=== PATIENT | female | born 1995 | race Caucasian/White ===

== ENCOUNTER → 2017-08-21 | Outpatient (CLI) | payer OTHER ==
--- NOTE | 2017-08-21 13:25 | EKG REPORT ---
SEVERITY:- NORMAL ECG - SINUS RHYTHM : Confirmed by: Jeet Duncan MD 21-Aug-2017 13:24:18
== END ==
LOC: RT 12:31
PROVIDERS: ATTEND Pediatrics
DX: R55 Syncope and collapse (principal); R26.89 Other abnormalities of gait and mobility
CPT/HCPCS: 93005; 93010

== ENCOUNTER → 2017-09-19 | Outpatient (CLI) | payer OTHER ==
--- NOTE | 2017-09-20 08:32 | EEG PRO FEE REPORT ---
EEG INTERPRETATION PATIENT NAME: VICENTE JUNG ROOM#: ORDER#: [id number] DATE OF STUDY: 09/19/2017 : 1995 REFERRING MD: MICHELLE MOYA M.D. DIAGNOSIS: Syncope, POTS syndrome REPORT The background activity consists of 8-9 Hz low voltage alpha for the most part while awake there is frequent motion artifact noted. Hyperventilation elicits moderate build up with return to the normal record by one and half minutes. No focal slowing, amplitude asymmetry, or epileptiform discharges are noted some bursts of motion artifact are seen. IMPRESSION Normal EEG INTERPRETING PHYSICIAN: HUMPHREY HUGO M.D. /: MTEFFT TT: 0826 ID: [id number] /: [id number] TD: [id number] JOB: [id number] cc:Donnie SWEENEY M.D. >
== END ==
LOC: NEURO 08:08
PROVIDERS: ATTEND Pediatrics
DX: R55 Syncope and collapse (principal); R26.89 Other abnormalities of gait and mobility; F44.5 Conversion disorder with seizures or convulsions
CPT/HCPCS: 95819

== ENCOUNTER → 2017-11-18 | Outpatient (CLI) | payer OTHER ==
[2017-11-18 12:48] LABS: ABSOLUTE EOSINOPHILS # (AUTO) 0.1 10^3/uL (0.0-0.6); ABSOLUTE LYMPHOCYTES (AUTO) 1.5 10^3/uL (0.5-4.7); ABSOLUTE MONOCYTES (AUTO) 0.3 10^3/uL (0.1-1.4); ABSOLUTE NEUT (AUTO) 3.1 10^3/uL (1.7-8.2); BASOPHILS % (AUTO) 0.8 % (0-2); EOSINOPHILS % (AUTO) 2.8 % (0-6); HEMATOCRIT 40.8 % (36.0-47.0); LYMPHOCYTES % (AUTO) 28.9 % (13-45); MEAN CORPUSCULAR HGB CONC 34.4 g/dL (32.0-36.0); MEAN CORPUSCULAR VOLUME 90 fl (80-97); MONOCYTES % (AUTO) 6.8 % (3-13); PLATELET COUNT 250 10^3/uL (150-450); RED BLOOD COUNT 4.53 10^6/uL (3.72-5.28); RED CELL DISTRIBUTION WIDTH 12.6 % (11.5-14.0); SEGMENTED NEUTROPHILS % (AUTO) 60.7 % (42-78); TOTAL CELLS COUNTED % (AUTO) 100 %; WHITE BLOOD COUNT 5.1 10^3/uL (4.0-10.5)
[2017-11-18 13:31] LABS: ALANINE AMINOTRANSFERASE 17 U/L (9-52); ALBUMIN 4.2 g/dL (3.5-5.0); ALKALINE PHOSPHATASE 34 U/L (38-126); ANION GAP 13 (5-19); ASPARTATE AMINO TRANSFERASE 17 U/L (14-36); BILIRUBIN,DIRECT 0.2 mg/dL (0.0-0.4); BILIRUBIN,TOTAL 1.4 mg/dL (0.2-1.3); BLOOD UREA NITROGEN 6 mg/dL (7-20); CALCIUM 9.4 mg/dL (8.4-10.2); CARBON DIOXIDE 27 mmol/L (22-30); CHLORIDE 106 mmol/L (98-107); GLUCOSE 86 mg/dL (75-110); IRON(TIBC) 217.4 ug/dL (37-170); POTASSIUM 4.7 mmol/L (3.6-5.0); SODIUM 145.6 mmol/L (137-145); TOTAL PROTEIN 6.4 g/dL (6.3-8.2)
[2017-11-18 14:35] LABS: FOLATE > 20.00 ng/mL (>2.76)
== END ==
LOC: OD 12:01
PROVIDERS: ATTEND Family Medicine
DX: D50.9 Iron deficiency anemia, unspecified (principal); Z79.52 Long term (current) use of systemic steroids
CPT/HCPCS: 36415; 80053; 82607; 82728; 82746; 83540; 83550; 85025

== ENCOUNTER → 2017-12-04 | Outpatient (CLI) | payer OTHER ==
--- NOTE | 2017-12-04 12:33 | RADIOLOGY REPORT (SQ) ---
EXAM DESCRIPTION: U/S RETROPERITON (RENAL/AORTA) COMPLETED DATE/TIME: 12/04/2017 11:50 am REASON FOR STUDY: RETENTION OF URINE, UNSPECIFIED R33.9 RETENTION OF URINE, UNSPECIFIED COMPARISON: None. TECHNIQUE: Dynamic and static grayscale images acquired of the kidneys and bladder and recorded on P ACS. Additional selected color Doppler and spectral images recorded. LIMITATIONS: None. FINDINGS: RIGHT KIDNEY: Normal size, 10 cm in length. Normal echogenicity. No solid or suspicious ma sses. No hydronephrosis. No calcifications. LEFT KIDNEY: Normal size, 11 cm in length. Normal echogenicity. No solid or suspicious masses. No hy dronephrosis. No calcifications. BLADDER: Prevoid bladder volume 205 mL. Postvoid bladder residua 20 mL. OTHER FINDINGS: No other significant finding. IMPRESSION: NORMAL RENAL AND BLADDER ULTRASOUND. TECHNICAL DOCUMENTATION: JOB ID: [id number] [employer]- All Rights Reserved Reading location - IP/workstation name: [email or web address]
== END ==
LOC: RAD 11:10
PROVIDERS: ATTEND Family Medicine
DX: R33.9 Retention of urine, unspecified (principal)
CPT/HCPCS: 76770